=== PATIENT | male | born 1985 ===

== ENCOUNTER 2021-06-20 08:19 | Day surgery (SDC) | payer OTHER ==
[~2021-06-20] VITALS: Ht 175.3 cm; Wt 95.5 kg
[2021-06-20] VITALS (135 sets, daily range): BP systolic 75–149; BP diastolic 30–88
--- NOTE | 2021-06-20 07:30 | NUR ---
PT ARRIVED TO RM 290, AMBULATORY WITH STEADY GAIT ACCOMPAINED BY . PT ALERT AND ORIENTED X4. NO APPARENT DISTRESS NOTED. PT ORIENTED TO ROOM AND CALL LIGHT SYSTEM. VS OBTAINED. DISCUSSED POC AND SAFETY PRECAUTIONS. PT VERBALIZED UNDERSTANDING. CALL LIGHT WITHIN REACH. WILL CONTINUE TO MONITOR.
[2021-06-20 08:43] LABS: HEMATOCRIT 41.2 % (39.0-50.0); HEMOGLOBIN 14.1 g/dl (14.0-18.0); IMMATURE GRANULOCYTES 0.4 % (0.0-5.0); MEAN CELL VOLUME 87.3 fL CALC (80.0-100.0); MEAN CORPUSCULAR HGB 29.9 pG CALC (26.0-32.0); MEAN CORPUSCULAR HGB CONC 34.2 g/dL CAL (32.0-36.0); NEUT# 5.18 thou/uL (1.82-7.42); RED BLOOD COUNT 4.72 mill/uL (4.70-6.10); RED CELL DISTRI WIDTH 11.9 % (11.5-15.5)
[2021-06-20 08:51] LABS: ALBUMIN 4.3 g/dL (3.2-5.0); ALKALINE PHOSPHATASE 72 u/l (38-126); ANION GAP 10 (6-22 (CALC)); BILIRUBIN, TOTAL 0.5 mg/dL (0.0-1.4); BUN 17 mg/dL (9-20); BUN/CREATININE RATIO 15 (12-20 (CALC)); CARBON DIOXIDE 28 mmol/l (22-30); CHLORIDE 102 mmol/l (95-108); CREATININE 1.2 mg/dL (0.7-1.3); GFR > 60 ML/MIN (>=60 (CALC)); GFR FOR AFR.AMER. > 60 ML/MIN (>=60 (CALC)); POTASSIUM 4.2 mmol/l (3.5-5.1); SGOT/AST 52 u/l (17-59); SODIUM 136 mmol/l (137-146); TOTAL PROTEIN 7.4 g/dL (6.3-8.2)
--- NOTE | 2021-06-20 09:53 | NUR ---
DR. MEDRANO AT BEDSIDE.
--- NOTE | 2021-06-20 11:28 | NUR ---
Induction Note Patient to [facility] procedure room. Time out performed at 1128. Patient placed on monitors, Rossana hugger, bilateral wrist restraints applied for ET tube protection. Versed 5mg given IV push at 1131 Tourniquet applied to right arm Lidocaine 100mg given at 1133 IV push followed by Rocoronium 10mg at 1134 IV push and held for 90 seconds. Propofol bolus of 110mg given at 1136 IV push. Succinylcholine 80mg given IV push at 1137 . Smooth intubation with 7.5 ETT. Positive CO2. Positive Auscultation for air exchange. Patient placed on ventilator for spontaneous ventilation. Placed on Propofol IV drip at 1138. OG inserted. Positive air on auscultation. Positive gastric content. Stomach washed at this time.
--- NOTE | 2021-06-20 12:06 | NUR ---
OG close note Stomach washed at this time. Naltrexone 75mg via OG tube. OG will be clamped for 45 minutes.
--- NOTE | 2021-06-20 12:29 | NUR ---
OG open note OG open at this time. PT vomited, suctioned at this time. Gastric content draining into drainage bag. OG to drain for 45 minutes. Propofol will be titrated down based on patient.
--- NOTE | 2021-06-20 13:14 | NUR ---
OG close note Stomach washed at this time. Naltrexone 50 mg with Clonidine 0.2 mg via OG tube. OG will be clamped for 45 minutes.
--- NOTE | 2021-06-20 13:59 | NUR ---
OG open note OG open at this time. Gastric content draining into drainage bag. OG to drain for 45 minutes. Propofol will be titrated down based on patient.
--- NOTE | 2021-06-20 14:53 | NUR ---
OG close note Stomach washed at this time. Naltrexone 25mg with Clonidine 0.1mg via OG tube. OG will be clamped for 45 minutes.
--- NOTE | 2021-06-20 17:37 | NUR ---
Extubation note Closing medications given Benadryl 50mg IV push, Decadron 10mg IV push,Magnesium 4 grams IV, Zofran 8mg IV push, Octreotide 100mcg SC. Stomach washed out prior to extubation. Suctioned gastric content. OG removed. Patient extubated. Propofol Discontinued. Wrist restraints removed. Rossana hugger Removed. See [facility] Moderate sedate recovery record for further notes and assessment.
--- NOTE | 2021-06-20 23:11 | NUR ---
PT RESTING IN BED, ASSISTED TO BSC TO VOID, TOLERATED WELL. PT MEDICATED PER MAR, CALL LIGHT IN REACH, BED ALARM IN PLACE,CONTINUE TO MONITOR.
[2021-06-21 03:57] VITALS: BP 111/63
--- NOTE | 2021-06-21 04:35 | NUR ---
PT RESTING IN BED, YELLING OUT STATES HE,"IS FEELING WITHDRAWALS" PT MEDICATED PER MAR, NO SIGNS OF DISTRESS NOTED, RESP EVEN AND UNLABORED. CALL LIGHT IN REACH,CONTINUE TO MONITOR.
[2021-06-21 04:53] LABS: HEMATOCRIT 40.9 % (39.0-50.0); HEMOGLOBIN 13.8 g/dl (14.0-18.0); IMMATURE GRANULOCYTES 0.4 % (0.0-5.0); MEAN CELL VOLUME 89.3 fL CALC (80.0-100.0); MEAN CORPUSCULAR HGB 30.1 pG CALC (26.0-32.0); MEAN CORPUSCULAR HGB CONC 33.7 g/dL CAL (32.0-36.0); NEUT# 13.02 thou/uL (1.82-7.42); RED BLOOD COUNT 4.58 mill/uL (4.70-6.10); RED CELL DISTRI WIDTH 11.8 % (11.5-15.5)
[2021-06-21 05:12] LABS: ALBUMIN 4.1 g/dL (3.2-5.0); ALKALINE PHOSPHATASE 67 u/l (38-126); ANION GAP 12 (6-22 (CALC)); BUN 19 mg/dL (9-20); BUN/CREATININE RATIO 16 (12-20 (CALC)); CARBON DIOXIDE 25 mmol/l (22-30); CHLORIDE 104 mmol/l (95-108); CREATININE 1.2 mg/dL (0.7-1.3); GFR > 60 ML/MIN (>=60 (CALC)); GFR FOR AFR.AMER. > 60 ML/MIN (>=60 (CALC)); MAGNESIUM 2.5 mg/dL (1.6-2.3); POTASSIUM 4.7 mmol/l (3.5-5.1); SGOT/AST 46 u/l (17-59); SODIUM 136 mmol/l (137-146); TOTAL PROTEIN 7.2 g/dL (6.3-8.2)
[2021-06-21 05:14] LABS: BILIRUBIN, TOTAL 0.8 mg/dL (0.0-1.4)
[2021-06-21 06:44] VITALS: BP 139/76
--- NOTE | 2021-06-21 09:40 | NUR ---
PT SLEEPING AT THIS TIME. NO DISTRESS NOTED. FALL/SAFTEY PRECAUTION IN PLACE. CALL LIGHT WITHIN REACH.
--- NOTE | 2021-06-21 12:00 | NUR ---
PATIENT IS SLEEPING, PATIENT AWAKES WITH GENTALLY CALLING HIS NAME. PATIENT SOILDED HIMSELF, CLEANED HIM UP AND CHANGED BEDDING. PATIENT THEN WENT BACK TO SLEEP.
--- NOTE | 2021-06-21 16:00 | NUR ---
PATIENT WAS UP TO SHOWER, GOT DRESSED AND HAD A BM. PATIENT STATES THAT HE IS FEELING OK JUST VERY TIRED. NO SXS OF DISTRESS AT THIS TIME.
--- NOTE | 2021-06-21 16:59 | NUR ---
Discharge instructions given. Patient verbalizes understanding of same. Discharged in stable condition via Wheelchair to Home with family. All belongings sent with pt.
== END 2021-06-21 17:12 | disposition home or self-care (01) | DRG 897 ==
LOC: MS2 08:19 → ANR 08:19
PROVIDERS: ATTEND Anesthesiology
DX: F11.20 Opioid dependence, uncomplicated (principal)
CPT/HCPCS: J2060; J2354; J3475